=== PATIENT | male | born 1980 | race Caucasian/White ===

== ENCOUNTER 2018-08-27 20:26 | Emergency (ER) | payer MEDICAID ==
[~2018-08-27] VITALS: Ht 170.2 cm; Wt 61.4 kg
[2018-08-27 23:29] LABS: HEMATOCRIT. 27.4 % (42.0-52.0); HEMOGLOBIN. 8.7 g/dL (14.0-18.0); MEAN CORPUSCULAR HEMOGLOBIN 27.7 pg (28.0-32.0); MEAN CORPUSCULAR VOLUME 87.2 fL (80.0-94.0); MEAN PLATELET VOLUME 5.9 fl (7.4-10.4); PLATELET 363 x1000/uL (130-400); RED BLOOD CELL COUNT 3.14 mill/uL (4.7-6.1); RED CELL DISTRIBUTION WIDTH 18.4 % (11.6-14.6)
[2018-08-27 23:35] LABS: CHLORIDE 103 mEq/L (98-107)
[2018-08-27 23:44] LABS: ETHANOL BLOOD 158 mg/dL
[2018-08-28 01:03] LABS: *AMPHETAMINES SCREEN URINE NEGATIVE (NEGATIVE); *BARBITURATES SCREEN URINE NEGATIVE (NEGATIVE); *BENZODIAZEPINES SCREEN URINE NEGATIVE (NEGATIVE); *COCAINE SCREEN URINE NEGATIVE (NEGATIVE); CANNABINOID URINE SCREEN NEGATIVE (NEGATIVE); METHADONE URINE SCREEN NEGATIVE (NEGATIVE); OPIATES URINE SCREEN NEGATIVE (NEGATIVE); PHENCYCLIDINE URINE SCREEN NEGATIVE (NEGATIVE)
[2018-08-28] MEDS: ACETAMINOPHEN 325MG TABLET PO NR ×2 (01:30→02:10)
[2018-08-28 02:35] VITALS: BP 117/65
[2018-08-28 03:17] LABS: ATYPICAL LYMPHOCYTES 1; PLATELET ESTIMATE NORMAL
== END 2018-08-28 02:34 | disposition home or self-care (01) ==
LOC: ER 20:26
DX: L03.116 Cellulitis of left lower limb (principal); L03.115 Cellulitis of right lower limb; F19.10 Other psychoactive substance abuse, uncomplicated
CPT/HCPCS: 36415; 73590; 80053; 80305; 85025; 93005; 93970; 99285; G0482

== ENCOUNTER 2019-01-27 15:10 | Emergency (ER) | payer MEDICAID ==
[~2019-01-27] VITALS: Ht 167.6 cm; Wt 74.0 kg
[2019-01-27] MEDS ORDERED: LORAZEPAM 1MG TABLET PO ONE (15:30)
[2019-01-27] MEDS ORDERED: CHLORDIAZEPOXIDE 25MG CAPSULE PO ONE (15:30)
[2019-01-27 15:57] LABS: CHLORIDE 98 mEq/L (98-107)
[2019-01-27 16:01] LABS: ETHANOL BLOOD < 10 mg/dL
[2019-01-27 16:08] LABS: HEMATOCRIT. 30.5 % (42.0-52.0); MEAN CORPUSCULAR HEMOGLOBIN 28.5 pg (28.0-32.0); MEAN CORPUSCULAR VOLUME 87.1 fL (80.0-94.0); PLATELET 124 x1000/uL (130-400); RED CELL DISTRIBUTION WIDTH 18.5 % (11.6-14.6)
[2019-01-27 16:46] LABS: PLATELET ESTIMATE SLIGHTLY DECREASED
[2019-01-27 17:40] LABS: *AMPHETAMINES SCREEN URINE NEGATIVE (NEGATIVE)
[2019-01-27 17:41] LABS: *BARBITURATES SCREEN URINE NEGATIVE (NEGATIVE); *BENZODIAZEPINES SCREEN URINE NEGATIVE (NEGATIVE); *COCAINE SCREEN URINE NEGATIVE (NEGATIVE); CANNABINOID URINE SCREEN NEGATIVE (NEGATIVE); METHADONE URINE SCREEN NEGATIVE (NEGATIVE); OPIATES URINE SCREEN NEGATIVE (NEGATIVE); PHENCYCLIDINE URINE SCREEN NEGATIVE (NEGATIVE)
[2019-01-27 18:56] VITALS: BP 152/97
== END 2019-01-27 19:18 | disposition home or self-care (01) ==
LOC: ER 15:10
DX: R56.9 Unspecified convulsions (principal); F10.239 Alcohol dependence with withdrawal, unspecified; Y90.0 Blood alcohol level of less than 20 mg/100 ml
CPT/HCPCS: 36415; 80305; 80320; 99284; G0480

== ENCOUNTER 2020-05-17 20:35 | Inpatient (IN) | payer MEDICAID ==
[~2020-05-17] VITALS: Ht 167.6 cm; Wt 67.8 kg
[2020-05-17] MEDS ORDERED: SODIUM CHLORIDE 0.9% 1,000 ML IV ONE (22:33)
[2020-05-17 23:10] LABS: CLARITY URINE CLEAR (CLEAR); COLOR URINE DARK YELLOW (YELLOW); KETONES URINE NEGATIVE (NEGATIVE); LEUKOCYTE ESTERASE URINE NEGATIVE (NEGATIVE); NITRITE URINE NEGATIVE (NEGATIVE); OCCULT BLOOD URINE 1+ (NEGATIVE); PROTEIN URINE NEGATIVE (NEGATIVE); SPECIFIC GRAVITY URINE 1.011 (1.005-1.030)
[2020-05-17 23:13] LABS: CHLORIDE 104 mEq/L (98-107)
[2020-05-17 23:14] LABS: INR 1.2
[2020-05-17 23:20] LABS: ETHANOL BLOOD 299 mg/dL
[2020-05-17 23:22] LABS: MEAN CORPUSCULAR HEMOGLOBIN 24.6 pg (28.0-32.0); MEAN CORPUSCULAR VOLUME 83.6 fL (80.0-94.0); MEAN PLATELET VOLUME 6.9 fl (7.4-10.4); PLATELET 224 x1000/uL (130-400); RED BLOOD CELL COUNT 2.12 mill/uL (4.7-6.1); RED CELL DISTRIBUTION WIDTH 20.2 % (11.6-14.6)
[2020-05-17 23:29] LABS: *AMPHETAMINES SCREEN URINE NEGATIVE (NEGATIVE); *BARBITURATES SCREEN URINE NEGATIVE (NEGATIVE)
[2020-05-17 23:30] LABS: *BENZODIAZEPINES SCREEN URINE NEGATIVE (NEGATIVE); *COCAINE SCREEN URINE NEGATIVE (NEGATIVE); CANNABINOID URINE SCREEN NEGATIVE (NEGATIVE); METHADONE URINE SCREEN NEGATIVE (NEGATIVE); OPIATES URINE SCREEN NEGATIVE (NEGATIVE); PHENCYCLIDINE URINE SCREEN NEGATIVE (NEGATIVE)
[2020-05-17 23:38] LABS: HEMATOCRIT. 17.7 % (42.0-52.0); HEMOGLOBIN. 5.2 g/dL (14.0-18.0)
[2020-05-18] VITALS (11 sets, daily range): BP systolic 100–133; BP diastolic 50–90
[2020-05-18] MEDS ORDERED: IOHEXOL-300 100 ML BOTTLE ONE (00:23)
[2020-05-18] MEDS ORDERED: LORAZEPAM 2MG/ML CPJ IV PRN (02:30)
[2020-05-18] MEDS ORDERED: SODIUM CHLORIDE 0.9% 1,000 ML IV SCH (02:30)
[2020-05-18] MEDS ORDERED: DIPHENHYDRAMINE 50MG/ML VIAL IV PRN (02:30)
[2020-05-18] MEDS ORDERED: ZOLPIDEM TARTRATE 5MG TABLET PO PRN (02:30)
[2020-05-18] MEDS ORDERED: ONDANSETRON HCL 4MG/2ML INJ IV PRN (02:30)
[2020-05-18] MEDS ORDERED: MVI, ADULT NO.1 10 ML, FOLIC ACID 1 MG, THIAMINE HCL 100 MG in SODIUM CHLORIDE 0.9% 1,0... IV NR ×4 (04:00)
[2020-05-18 05:10] LABS: ATYPICAL LYMPHOCYTES 2; NUCLEATED RED BLOOD CELLS 1 /100 WBC; PLATELET ESTIMATE NORMAL
[2020-05-18] MEDS: CHLORDIAZEPOXIDE 25MG CAPSULE PO SCH ×3 (06:39→23:22)
[2020-05-18] MEDS ORDERED: PANTOPRAZOLE SODIUM 40 MG/VIAL IV SCH (09:00)
[2020-05-18 09:39] LABS: MEAN CORPUSCULAR HEMOGLOBIN 25.3 pg (28.0-32.0); PLATELET 148 x1000/uL (130-400); RED BLOOD CELL COUNT 1.97 mill/uL (4.7-6.1); RED CELL DISTRIBUTION WIDTH 21.4 % (11.6-14.6)
[2020-05-18 10:11] LABS: HEMATOCRIT 15.7 % (42.0-52.0)
[2020-05-18 16:47] LABS: HEMATOCRIT 20.4 % (42.0-52.0); HEMOGLOBIN 6.8 g/dL (14.0-18.0)
[2020-05-18 17:49] LABS: TOTAL IRON BINDING CAPACITY 250 ug/dL (250-450)
[2020-05-18] MEDS: PANTOPRAZOLE SODIUM 40 MG/VIAL IV SCH (17:59)
[2020-05-18] MEDS ORDERED: NYSTATIN POWDER 15GM TOP SCH (18:15)
[2020-05-18] MEDS: ACETAMINOPHEN 650MG/20.3ML UDC PO PRN (19:51)
[2020-05-18] MEDS: SODIUM CHLORIDE 0.9% 1,000 ML IV SCH (19:52)
[2020-05-18] MEDS: NYSTATIN POWDER 15GM TOP SCH (23:22)
[2020-05-19] VITALS (12 sets, daily range): BP systolic 120–154; BP diastolic 82–96
[2020-05-19] MEDS: CHLORDIAZEPOXIDE 25MG CAPSULE PO SCH ×3 (06:00→21:05)
[2020-05-19 08:48] LABS: BASOPHILS % 1.3 % (0.0-2.0); EOSINOPHILS % 2.6 % (0.0-5.0); HEMATOCRIT. 30.2 % (42.0-52.0); HEMOGLOBIN. 9.9 g/dL (14.0-18.0); LYMPHOCYTES % 13.5 % (20.0-50.0); MEAN CORPUSCULAR HEMOGLOBIN 26.8 pg (28.0-32.0); MEAN CORPUSCULAR VOLUME 81.9 fL (80.0-94.0); MEAN PLATELET VOLUME 6.8 fl (7.4-10.4); MONOCYTES % 8.8 % (2.0-8.0); NEUTROPHILS % 73.8 % (40.0-76.0); PLATELET 161 x1000/uL (130-400); RED BLOOD CELL COUNT 3.69 mill/uL (4.7-6.1); RED CELL DISTRIBUTION WIDTH 19.8 % (11.6-14.6)
[2020-05-19] MEDS: PANTOPRAZOLE SODIUM 40 MG/VIAL IV SCH ×2 (08:51→17:26)
[2020-05-19] MEDS: NYSTATIN POWDER 15GM TOP SCH ×2 (08:52→17:25)
[2020-05-19 09:20] LABS: CHLORIDE 106 mEq/L (98-107)
[2020-05-19] MEDS ORDERED: POTASSIUM CHLORIDE 20MEQ TABLET SR PO ONE (11:30)
[2020-05-19] MEDS ORDERED: POTASSIUM CHLORIDE INJ 40 MEQ in DEXT 5% WATER 250 ML IV ONE (11:45)
[2020-05-19 12:30] LABS: HEMATOCRIT 27.6 % (42.0-52.0); HEMOGLOBIN 9.1 g/dL (14.0-18.0)
[2020-05-19] MEDS: SODIUM CHLORIDE 0.9% 1,000 ML IV SCH (17:33)
[2020-05-19 21:45] LABS: HEMATOCRIT 28.9 % (42.0-52.0); HEMOGLOBIN 9.4 g/dL (14.0-18.0)
[2020-05-20] VITALS: BP 137/94
[2020-05-20 04:00] VITALS: BP 140/65
[2020-05-20] MEDS: CHLORDIAZEPOXIDE 25MG CAPSULE PO SCH ×3 (05:46→20:53)
[2020-05-20 06:08] LABS: HEMOGLOBIN 9.2 g/dL (14.0-18.0)
[2020-05-20 08:00] VITALS: BP 133/91
[2020-05-20] MEDS: PANTOPRAZOLE SODIUM 40 MG/VIAL IV SCH ×2 (08:24→17:19)
[2020-05-20] MEDS: NYSTATIN POWDER 15GM TOP SCH ×2 (08:24→17:19)
[2020-05-20] MEDS ORDERED: POTASSIUM CHLORIDE INJ 40 MEQ in DEXT 5% WATER 250 ML IV NR (11:00)
[2020-05-20 12:00] VITALS: BP 141/104
[2020-05-20] MEDS ORDERED: PROPOFOL 200MG/20ML VIAL IV ONE (13:42)
[2020-05-20] MEDS: DEXT 5%/0.9% NACL 1,000 ML IV SCH (14:53)
[2020-05-20 16:00] VITALS: BP 145/99
[2020-05-20] MEDS: SUCRALFATE 1 G/10 ML UDC PO SCH (17:19)
[2020-05-20 20:00] VITALS: BP 167/106
[2020-05-20 20:22] LABS: HEMATOCRIT. 25.8 % (42.0-52.0); HEMOGLOBIN. 8.6 g/dL (14.0-18.0); MEAN CORPUSCULAR HEMOGLOBIN 27.6 pg (28.0-32.0); MEAN CORPUSCULAR VOLUME 82.9 fL (80.0-94.0); MEAN PLATELET VOLUME 6.8 fl (7.4-10.4); PLATELET 183 x1000/uL (130-400); RED BLOOD CELL COUNT 3.11 mill/uL (4.7-6.1); RED CELL DISTRIBUTION WIDTH 20.5 % (11.6-14.6)
[2020-05-20 20:33] LABS: INR 1.5; PROTHROMBIN TIME 15.4 sec (9.6-11.0)
[2020-05-20 20:35] LABS: CHLORIDE 106 mEq/L (98-107)
[2020-05-20] MEDS: PROPRANOLOL HCL 10MG TABLET PO SCH (20:53)
[2020-05-20 21:46] LABS: PLATELET ESTIMATE NORMAL
[2020-05-21] VITALS: BP 148/80
[2020-05-21 00:03] LABS: HEMATOCRIT 28.8 % (42.0-52.0); HEMOGLOBIN 9.2 g/dL (14.0-18.0)
[2020-05-21] MEDS: SUCRALFATE 1 G/10 ML UDC PO SCH ×4 (00:19→17:26)
[2020-05-21] MEDS: DEXT 5%/0.9% NACL 1,000 ML IV SCH (03:33)
[2020-05-21 04:00] VITALS: BP 128/97
[2020-05-21] MEDS: CHLORDIAZEPOXIDE 25MG CAPSULE PO SCH ×3 (06:02→21:08)
[2020-05-21 07:22] LABS: HEMATOCRIT. 25.9 % (42.0-52.0); HEMOGLOBIN. 8.6 g/dL (14.0-18.0); MEAN CORPUSCULAR VOLUME 84.7 fL (80.0-94.0); PLATELET 201 x1000/uL (130-400); RED BLOOD CELL COUNT 3.06 mill/uL (4.7-6.1); RED CELL DISTRIBUTION WIDTH 20.5 % (11.6-14.6)
[2020-05-21 07:29] LABS: CHLORIDE 107 mEq/L (98-107)
[2020-05-21 08:00] VITALS: BP 127/66
[2020-05-21 08:36] LABS: HEMOGLOBIN 8.6 g/dL (14.0-18.0)
[2020-05-21] MEDS: PANTOPRAZOLE SODIUM 40 MG/VIAL IV SCH ×2 (09:13→17:26)
[2020-05-21] MEDS: PROPRANOLOL HCL 10MG TABLET PO SCH ×2 (09:13→21:09)
[2020-05-21] MEDS: NYSTATIN POWDER 15GM TOP SCH ×2 (09:47→17:26)
[2020-05-21 12:00] VITALS: BP 130/79
[2020-05-21] MEDS: LACTULOSE 20G/30ML UDC PO SCH ×2 (13:01→21:08)
[2020-05-21 16:00] VITALS: BP 105/69
[2020-05-21 17:59] LABS: PLATELET ESTIMATE NORMAL
[2020-05-21 20:00] VITALS: BP 118/77
[2020-05-21 21:23] LABS: HEMATOCRIT 26.3 % (42.0-52.0); HEMOGLOBIN 8.4 g/dL (14.0-18.0)
[2020-05-22] VITALS: BP 120/69
[2020-05-22] MEDS: SUCRALFATE 1 G/10 ML UDC PO SCH ×5 (00:09→23:22)
[2020-05-22 04:00] VITALS: BP 121/73
[2020-05-22] MEDS: CHLORDIAZEPOXIDE 25MG CAPSULE PO SCH ×3 (05:42→22:55)
[2020-05-22] MEDS: LACTULOSE 20G/30ML UDC PO SCH ×3 (05:42→22:55)
[2020-05-22 07:44] LABS: HEMOGLOBIN 8.2 g/dL (14.0-18.0)
[2020-05-22 08:00] VITALS: BP 111/74
[2020-05-22] MEDS: NYSTATIN POWDER 15GM TOP SCH ×2 (09:57→17:34)
[2020-05-22] MEDS: PROPRANOLOL HCL 10MG TABLET PO SCH ×2 (09:57→21:00)
[2020-05-22] MEDS: PANTOPRAZOLE SODIUM 40 MG/VIAL IV SCH ×2 (09:57→17:34)
[2020-05-22 12:00] VITALS: BP 111/78
[2020-05-22 16:00] VITALS: BP 102/66
[2020-05-22 20:00] VITALS: BP 108/77
[2020-05-23] VITALS: BP 104/71
[2020-05-23 04:00] VITALS: BP 107/66
[2020-05-23] MEDS: CHLORDIAZEPOXIDE 25MG CAPSULE PO SCH (07:01)
[2020-05-23] MEDS: LACTULOSE 20G/30ML UDC PO SCH ×3 (07:01→21:43)
[2020-05-23] MEDS: SUCRALFATE 1 G/10 ML UDC PO SCH ×3 (07:01→17:08)
[2020-05-23 08:21] VITALS: BP 95/57
[2020-05-23] MEDS: PANTOPRAZOLE SODIUM 40 MG/VIAL IV SCH ×2 (08:55→17:08)
[2020-05-23] MEDS: PROPRANOLOL HCL 10MG TABLET PO SCH ×2 (08:56→21:00)
[2020-05-23] MEDS: NYSTATIN POWDER 15GM TOP SCH ×2 (08:56→17:08)
[2020-05-23 09:05] LABS: HEMATOCRIT. 25.5 % (42.0-52.0); HEMOGLOBIN. 8.3 g/dL (14.0-18.0); MEAN CORPUSCULAR HEMOGLOBIN 28.2 pg (28.0-32.0); MEAN CORPUSCULAR VOLUME 86.5 fL (80.0-94.0); MEAN PLATELET VOLUME 6.5 fl (7.4-10.4); PLATELET 219 x1000/uL (130-400); RED BLOOD CELL COUNT 2.95 mill/uL (4.7-6.1); RED CELL DISTRIBUTION WIDTH 23.3 % (11.6-14.6)
[2020-05-23 09:08] LABS: CHLORIDE 108 mEq/L (98-107)
[2020-05-23 09:14] LABS: PHOSPHORUS 3.5 mg/dL (2.5-4.9)
[2020-05-23 11:11] LABS: PLATELET ESTIMATE NORMAL
[2020-05-23 12:00] VITALS: BP 92/58
[2020-05-23] MEDS ORDERED: MAGNESIUM 1 G PREMIX 100 ML IV ONE (12:00)
[2020-05-23 20:00] VITALS: BP 102/68
[2020-05-24] VITALS: BP 131/69
[2020-05-24] MEDS: SUCRALFATE 1 G/10 ML UDC PO SCH ×5 (00:07→21:34)
[2020-05-24 04:00] VITALS: BP 118/68
[2020-05-24] MEDS: LACTULOSE 20G/30ML UDC PO SCH ×3 (06:03→21:34)
[2020-05-24 08:57] VITALS: BP 91/54
[2020-05-24] MEDS: PROPRANOLOL HCL 10MG TABLET PO SCH ×2 (09:00→21:34)
[2020-05-24] MEDS: NYSTATIN POWDER 15GM TOP SCH ×2 (09:00→17:39)
[2020-05-24 09:15] LABS: INR 1.5; PROTHROMBIN TIME 15.2 sec (9.6-11.0)
[2020-05-24] MEDS: PANTOPRAZOLE SODIUM 40 MG/VIAL IV SCH ×2 (09:45→18:05)
[2020-05-24 12:22] VITALS: BP 96/50
[2020-05-24 16:14] VITALS: BP 109/68
[2020-05-24 17:41] LABS: HEMATOCRIT 29.9 % (42.0-52.0); HEMOGLOBIN 9.4 g/dL (14.0-18.0)
[2020-05-24 20:00] VITALS: BP 120/70
[2020-05-25] VITALS: BP 116/67
[2020-05-25 04:00] VITALS: BP 120/82
[2020-05-25] MEDS: LACTULOSE 20G/30ML UDC PO SCH ×3 (05:54→21:34)
[2020-05-25] MEDS: SUCRALFATE 1 G/10 ML UDC PO SCH ×3 (05:54→17:05)
[2020-05-25 07:32] LABS: INR 1.6
[2020-05-25 08:00] VITALS: BP 110/72
[2020-05-25] MEDS: NYSTATIN POWDER 15GM TOP SCH ×2 (09:20→17:06)
[2020-05-25] MEDS: PROPRANOLOL HCL 10MG TABLET PO SCH ×2 (09:20→21:00)
[2020-05-25] MEDS: PANTOPRAZOLE SODIUM 40 MG/VIAL IV SCH ×2 (09:20→17:05)
[2020-05-25 12:00] VITALS: BP 102/66
[2020-05-25 16:00] VITALS: BP 110/70
[2020-05-25 20:00] VITALS: BP 105/69
[2020-05-25] MEDS: RIFAXIMIN 200MG TABLET PO SCH (21:34)
[2020-05-26] VITALS: BP 117/60
[2020-05-26] MEDS: SUCRALFATE 1 G/10 ML UDC PO SCH ×5 (00:47→23:51)
[2020-05-26 04:00] VITALS: BP_SYST 134; BP_SYST 99; BP_DIAS 52; BP_DIAS 66
[2020-05-26] MEDS: ACETAMINOPHEN 650MG/20.3ML UDC PO PRN ×2 (05:20→12:26)
[2020-05-26] MEDS: LACTULOSE 20G/30ML UDC PO SCH ×3 (05:20→21:01)
[2020-05-26 07:14] LABS: INR 1.6; PROTHROMBIN TIME 16.8 sec (9.6-11.0)
[2020-05-26 08:00] VITALS: BP 94/55
[2020-05-26] MEDS: PROPRANOLOL HCL 10MG TABLET PO SCH ×2 (09:00→20:58)
[2020-05-26] MEDS: PANTOPRAZOLE SODIUM 40 MG/VIAL IV SCH ×2 (09:51→17:15)
[2020-05-26] MEDS: NYSTATIN POWDER 15GM TOP SCH ×2 (09:51→17:15)
[2020-05-26] MEDS: RIFAXIMIN 200MG TABLET PO SCH ×2 (09:51→20:58)
[2020-05-26 12:00] VITALS: BP 96/62
[2020-05-26 16:00] VITALS: BP 101/64
[2020-05-26 20:00] VITALS: BP 114/71
[2020-05-27] VITALS: BP 104/68
[2020-05-27 04:00] VITALS: BP 104/66
[2020-05-27] MEDS: LACTULOSE 20G/30ML UDC PO SCH ×2 (05:37→12:39)
[2020-05-27] MEDS: SUCRALFATE 1 G/10 ML UDC PO SCH ×2 (05:37→12:39)
[2020-05-27 07:49] LABS: HEMATOCRIT. 24.4 % (42.0-52.0); HEMOGLOBIN. 7.8 g/dL (14.0-18.0); MEAN CORPUSCULAR HEMOGLOBIN 27.9 pg (28.0-32.0); MEAN CORPUSCULAR VOLUME 87.3 fL (80.0-94.0); MEAN PLATELET VOLUME 7.6 fl (7.4-10.4); PLATELET 246 x1000/uL (130-400); RED BLOOD CELL COUNT 2.79 mill/uL (4.7-6.1); RED CELL DISTRIBUTION WIDTH 23.1 % (11.6-14.6)
[2020-05-27 07:51] LABS: INR 1.5; PROTHROMBIN TIME 15.3 sec (9.6-11.0)
[2020-05-27 08:00] VITALS: BP 105/50
[2020-05-27 08:35] LABS: CHLORIDE 107 mEq/L (98-107)
[2020-05-27 08:41] LABS: PHOSPHORUS 2.5 mg/dL (2.5-4.9)
[2020-05-27] MEDS: PROPRANOLOL HCL 10MG TABLET PO SCH (09:00)
[2020-05-27] MEDS: PANTOPRAZOLE SODIUM 40 MG/VIAL IV SCH (09:33)
[2020-05-27] MEDS: RIFAXIMIN 200MG TABLET PO SCH (09:34)
[2020-05-27] MEDS: NYSTATIN POWDER 15GM TOP SCH (09:35)
[2020-05-27 12:44] LABS: PLATELET ESTIMATE NORMAL
[2020-05-27 15:56] VITALS: BP 106/60
== END 2020-05-27 16:55 | disposition home or self-care (01) ==
LOC: ER 20:35 → 5WST 23:40 → ENRESERV 23:45 → 5WST 05-18 02:24
PROVIDERS: ADMIT Internal Medicine; ATTEND Internal Medicine
PROC: 30233N1 Transfusion of Nonautologous Red Blood Cells into Peripheral Vein, Percutaneous Approach (ICD-10-PCS; 2020-05-18)
PROC: 06L38ZZ Occlusion of Esophageal Vein, Via Natural or Artificial Opening Endoscopic (ICD-10-PCS; principal; 2020-05-20)
PROC: 0DB78ZX Excision of Stomach, Pylorus, Via Natural or Artificial Opening Endoscopic, Diagnostic (ICD-10-PCS; 2020-05-20)
DX: K76.6 Portal hypertension (principal); K29.71 Gastritis, unspecified, with bleeding; I85.10 Secondary esophageal varices without bleeding; K22.2 Esophageal obstruction; K44.9 Diaphragmatic hernia without obstruction or gangrene; K31.89 Other diseases of stomach and duodenum; G92 Toxic encephalopathy; E87.2 Acidosis; I95.9 Hypotension, unspecified; E46 Unspecified protein-calorie malnutrition; D64.9 Anemia, unspecified; R56.9 Unspecified convulsions; K80.20 Calculus of gallbladder without cholecystitis without obstruction; N62 Hypertrophy of breast; Y90.8 Blood alcohol level of 240 mg/100 ml or more; K70.31 Alcoholic cirrhosis of liver with ascites; F10.10 Alcohol abuse, uncomplicated; G31.2 Degeneration of nervous system due to alcohol; Z59.0 Homelessness
CPT/HCPCS: 36415; 74177; 76705; 78278; 80048; 80053; 80076; 80305; 80320; 81003; 82140; 82248; 82728; 83540; 83550; 83605; 83735; 84100; 84484; 85014; 85018; 85025; 85027; 86850; 86900; 86920; 88305; 88312; 88313; 93005; 97162; 97166; 99291; A9560; C9113; J1200; J2060; J2704; J3411; J3475; J3480; J3490; J7030; J7042; J7060; P9016; Q9967; G0480